=== PATIENT | male | born 1975 | race Caucasian/White ===

== ENCOUNTER 2020-05-26 19:32 | Inpatient (IN) | payer MEDICAID ==
[~2020-05-26] VITALS: Ht 167.6 cm; Wt 64.0 kg
--- NOTE | 2020-05-26 21:00 | NUR ---
PATIENT WAS FOUND IN HALLWAY: PATIENT IS THREATENING TO LEAVE THE ER BECAUSE HE WANTS TO SMOKE A CIGARETTE. POLICIES HAVE BEEN EXPLAINED TO PATIENT DURING INITIAL INTERVIEW PROCESS. PATIENT VERBALIZED UNDERSTANDING OF NOT BEING ABLE TO SMOKE INSIDE OF A HOSPITAL. PROVIDER SPOKE WITH PATIENT REGARDING INFORMATION ON SMOKING POLICY AND INABILITY TO LEAVE THE ER WITH IV. NO EVIDENCE OF LEARNING EXHIBITED. PATIENT IS CONSIDERING DELAYING SURGERY FOR "SMOKE". PATIENT IS FRUSTRATED AT THIS POINT BECAUSE [facility] LET HIM LEAVE THE ER FOR A CIGARETTE AND [facility] POLICY IS DIFFERENT REGARDING ELOPEMENT AND LEAVING THE ER.
--- NOTE | 2020-05-26 21:10 | NUR ---
OR CALLED FOR PATIENT REPORT FOR OR.
[2020-05-26] MEDS ORDERED: ONDANSETRON 2MG/ML, 2ML ONE ×2 (21:20→21:53)
[2020-05-26] MEDS ORDERED: HYDROmorphone 1 MG/ML, 1ML INJ ONE (21:20)
[2020-05-26] MEDS ORDERED: HYDROmorphone 1 MG/ML, 1ML INJ IV ONE (21:30)
[2020-05-26] MEDS ORDERED: ONDANSETRON 2MG/ML, 2ML IVPush ONE (21:30)
[2020-05-26] MEDS ORDERED: MIDAZOLAM 1 MG/ML, 2ML ONE (21:34)
[2020-05-26] MEDS ORDERED: PROPOFOL 10 MG/ML, 20ML ONE (21:53)
[2020-05-26] MEDS ORDERED: DEXAMETHASONE 4 MG/ML, 1ML ONE ×2 (21:53→22:03)
[2020-05-26] MEDS ORDERED: CEFAZOLIN 1,000 MG ONE (21:53)
[2020-05-26] MEDS ORDERED: FENTANYL PF 250 MCG/5ML ONE (22:03)
[2020-05-26] MEDS ORDERED: BUPIVACAINE/PF-EPI 0.5% 1:200K ONE (22:05)
[2020-05-26] MEDS ORDERED: DIAZEPAM 5 MG/ML, 2ML IVPush PRN (23:00)
[2020-05-26] MEDS ORDERED: ONDANSETRON 2MG/ML, 2ML IVPush PRN (23:00)
[2020-05-26] MEDS ORDERED: EPHEDRINE 50 MG/ML, 1ML IVPush PRN (23:00)
[2020-05-26] MEDS ORDERED: PROMETHAZINE 12.5 MG SUPP PR PRN (23:00)
[2020-05-26] MEDS ORDERED: ALBUTEROL SULFATE 2.5 MG/3 ML NPPB PRN (23:00)
[2020-05-26] MEDS ORDERED: MEPERIDINE/PF 25MG/0.5ML IVPush PRN (23:00)
[2020-05-26] MEDS ORDERED: OXYcodone 5 MG/5 ML ORAL.SOL UDC PO PRN (23:00)
[2020-05-26] MEDS ORDERED: HYDROmorphone 1 MG/ML, 1ML INJ IVPush PRN (23:00)
[2020-05-26] MEDS ORDERED: DIPHENHYDRAMINE 50 MG/ML, 1ML IVPush PRN (23:00)
[2020-05-26] MEDS ORDERED: FENTANYL PF 100 MCG/2ML IV PRN (23:00)
[2020-05-26] MEDS ORDERED: MIDAZOLAM 1 MG/ML, 2ML IV PRN (23:00)
[2020-05-26] MEDS ORDERED: LABETALOL 5MG/ML, 20ML IV PRN (23:00)
[2020-05-26] MEDS ORDERED: hydrALAzine 20 MG/ML, 1ML IV PRN (23:00)
[2020-05-26] MEDS ORDERED: PROMETHAZINE 25 MG/ML, 1ML IVPush PRN (23:00)
[2020-05-26] MEDS ORDERED: ACETAMINOPHEN 325 MG TABLET PO PRN (23:00)
[2020-05-26] MEDS ORDERED: SODIUM CHLORIDE 0.9% 1,000 ML IV SCH (23:44)
[2020-05-27] MEDS ORDERED: hydrALAzine 20 MG/ML, 1ML IVPush PRN
[2020-05-27] MEDS ORDERED: ONDANSETRON 2MG/ML, 2ML IVPush PRN
[2020-05-27] MEDS ORDERED: BISACODYL 10 MG SUPP PR PRN
[2020-05-27] MEDS ORDERED: ACETAMINOPHEN 325 MG TABLET PO PRN
[2020-05-27] MEDS ORDERED: ONDANSETRON ODT 4 MG PO PRN
[2020-05-27] MEDS ORDERED: POLYETHYLENE GLYCOL 17 GM PACKET PO PRN
[2020-05-27] MEDS ORDERED: DOCUSATE 100 MG CAPSULE PO PRN
[2020-05-27] MEDS ORDERED: OXYcodone IR 5MG TABLET PO PRN
[2020-05-27] MEDS ORDERED: PROMETHAZINE 25 MG/ML, 1ML IM PRN
[2020-05-27] MEDS ORDERED: morphine SULFATE 10 MG/ML, 1ML IVPush PRN
[2020-05-27] MEDS: CEFAZOLIN PMX 2GM/50ML 50 ML IVPB SCH ×2 (00:20→07:54)
[2020-05-27 04:42] VITALS: BP 114/77
[2020-05-27 04:58] LABS: BASOPHILS % (AUTO) 0 % (0-1); EOSINOPHILS # (AUTO) 0.02 x10^3/uL (0-0.4); EOSINOPHILS % (AUTO) 0 % (1-7); LYMPHOCYTES # (AUTO) 0.85 x10^3/uL (1-3.4); LYMPHOCYTES % (AUTO) 11 % (22-44); MD NO; MEAN CORPUSCULAR HEMOGLOBIN 30.7 pg (27.5-34.5); MEAN CORPUSCULAR HGB CONC 33.2 g/dL (33.2-36.2); MEAN CORPUSCULAR VOLUME 92.3 fL (81-97); MEAN PLATELET VOLUME 8.9 fL (7.4-10.4); MONOCYTES # (AUTO) 0.05 x10^3/uL (0.2-0.8); MONOCYTES % (AUTO) 1 % (2-9); NEUTROPHILS # (AUTO) 7.05 x10^3/uL (1.8-6.8); NEUTROPHILS % (AUTO) 88 % (42-75); PLATELET COUNT 201 x10^3/uL (130-400); RED BLOOD COUNT 5.03 x10^6/uL (4.38-5.82); RED CELL DISTRIBUTION WIDTH 13.6 % (9.4-14.8)
[2020-05-27 05:12] LABS: ALBUMIN 3.8 g/dL (3.4-5.0); ANION GAP 7 mmol/L (5-15); CHLORIDE 109 mmol/L (98-107)
[2020-05-27 05:15] LABS: ALANINE AMINOTRANSFERASE 28 U/L (12-78); ALKALINE PHOSPHATASE 77 U/L (45-117); BILIRUBIN,TOTAL 0.5 mg/dL (0.2-1.0); TOTAL PROTEIN 7.3 g/dL (6.4-8.2)
[2020-05-27 08:00] VITALS: BP 111/72
[2020-05-27 12:05] VITALS: BP 116/76
[2020-05-27] MEDS ORDERED: MELO7.5T31 PO (14:13)
[2020-05-27] MEDS ORDERED: OXYC5TAB3 PO (14:13)
[2020-05-27] MEDS ORDERED: ONDA4TAB13 PO (14:13)
[2020-05-27] MEDS ORDERED: POLY17PO5 PO (14:45)
== END 2020-05-27 15:00 | disposition home or self-care (01) | DRG 316 ==
LOC: ED 20:27 → EDIP 21:52 → 4NE 23:45
PROVIDERS: ADMIT Internal Medicine; ATTEND Internal Medicine
PROC: 0PST34Z Reposition Right Finger Phalanx with Internal Fixation Device, Percutaneous Approach (ICD-10-PCS; principal; 2020-05-26 21:30)
DX: S62.608A Fracture of unspecified phalanx of other finger, initial encounter for closed fracture (principal); F17.210 Nicotine dependence, cigarettes, uncomplicated; G89.11 Acute pain due to trauma; S63.056A Dislocation of other carpometacarpal joint of unspecified hand, initial encounter; G43.909 Migraine, unspecified, not intractable, without status migrainosus; Z80.0 Family history of malignant neoplasm of digestive organs; Z03.818 Encounter for observation for suspected exposure to other biological agents ruled out; Y93.89 Activity, other specified; Y92.89 Other specified places as the place of occurrence of the external cause; Y99.8 Other external cause status
CPT/HCPCS: 36415; 76000; 80053; 85025; 87635; C1713; G0378; J0690; J1100; J2250; J2405; J2704; J3010; J7030